=== PATIENT | female | born 1970 | race African-American/Black ===

== ENCOUNTER 2017-12-16 09:34 | Emergency (ER) | payer BC ==
[~2017-12-16] VITALS: Ht 175.3 cm; Wt 101.9 kg
[~2017-12-16 09:34] MED LIST: MOTRIN800 MG PO; MULTIPLE VITAM1 EACH PO; VICODIN 5-3001 EACH PO
[2017-12-16 10:29] LABS: HEMATOCRIT 40.4 % (36.0-46.0); HEMOGLOBIN 13.4 G/DL (11.9-15.5); MCH 29.8 PG (29.0-34.0); MCHC 33.2 G/DL (30.0-36.0); MCV 89.8 FL (83-99); PLATELET COUNT 224 K/uL (156-360); RBC DIS.WIDTH-CV 13.1 % (11.8-14.6); WHITE BLOOD COUNT 7.3 K/uL (4.1-10.2)
[2017-12-16 10:40] LABS: CHLORIDE 107 mEq/L (99-109); POTASSIUM 4.2 mEq/L (3.7-5.4); SODIUM 140 mEq/L (136-147)
[2017-12-16 10:41] LABS: GLUCOSE 103 mg/dL (70-99)
[2017-12-16 10:45] LABS: CREATININE 0.9 mg/dL (0.6-1.3); GFR ESTIMATE (CALCULATED) > 59 mL/min/
[2017-12-16 10:46] LABS: UREA NITROGEN (BUN) 9 mg/dL (9-23)
[2017-12-16 10:49] LABS: TROP-I INTERPRETATION NEGATIVE; TROPONIN-I < 0.01 ng/mL (0.0-0.30)
[2017-12-16 12:05] LABS: D-DIMER ELISA < 150.00 ng/mLDDU (<230)
[2017-12-16 14:07] LABS: TROP-I INTERPRETATION NEGATIVE; TROPONIN-I < 0.01 ng/mL (0.0-0.30)
[2017-12-16 14:45] VITALS: BP 137/62
== END 2017-12-16 14:46 | disposition home or self-care (01) ==
LOC: EME 09:34
PROVIDERS: Physician Assistant
DX: R06.09 Other forms of dyspnea (principal); R07.9 Chest pain, unspecified
CPT/HCPCS: 71046; 80048; 83880; 84484; 85027; 85379; 93005; 94640; 99281; 99284